=== PATIENT | male | born 1945 | race Caucasian/White ===

== ENCOUNTER → 2017-06-14 | Outpatient (CLI) | payer MEDICARE, OTHER ==
[~2017-06-14] MED LIST: DOXAZOSIN MESYLA2 MG PO; IOPAMIDOL 370 MG/ML 200 ML INFUS..BTL INJ ONE; SODIUM CHLORIDE 0.9% 250ML 250 ML ONE; SODIUM CHLORIDE 0.9% 500ML 500 ML ONE; SODIUM CHLORIDE 0.9% 50ML 50 ML ONE
[2017-06-14 08:10] LABS: CREATININE, SERUM 1.22 mg/dL (0.72-1.25)
--- NOTE | 2017-06-14 09:32 | Diagnostic Imaging Report ---
PROCEDURE: CT ABDOMEN WITH AND WITHOUT CONTRAST TECHNIQUE: The abdomen was scanned utilizing a multidetector helical scanner from the diaphragm to the iliac crest before and after the IV administration of 100 cc Isovue 370 and the oral administration of water. Renal mass protocol was performed. Coronal and sagittal multiplanar reformations were obtained. COMPARISON: Renal ultrasound 02/12/2016. INDICATIONS: RENAL CYST FINDINGS: LOWER THORAX: Normal. HEPATOBILIARY: Multiple round low attenuation lesions throughout the right and left hepatic lobes, which have average internal attenuation less than 20 Hounsfield units on precontrast and delayed phase imaging compatible with simple cysts. No intrahepatic biliary ductal dilatation. The gallbladder is unremarkable. SPLEEN: No splenomegaly. PANCREAS: No focal masses or ductal dilatation. ADRENALS: No adrenal nodules. KIDNEYS: There are multiple bilateral renal cysts, all of which have average internal attenuation less than 20 Hounsfield units on the pre-and post contrast images. Examples include: 1.9 cm lesion in the interpolar right kidney (series 4 image 38) 2.2 cm lesion projecting exophytically from the posterior interpolar right kidney (series 4 image 37) Adjacent 1.3 cm lesions in the upper pole of the left kidney (series 4, image 40) Additionally, there is a 2.2 cm hyperdense lesion within the interpolar right kidney posteriorly, with attenuation values as follows: Pre-contrast: 63 Hounsfield units Arterial phase: 66 Hounsfield units Venous phase: 67 Hounsfield units Delayed phase: 65 Hounsfield units Incidental note of a partially duplicated right collecting system, with fusion of the upper and lower pole ureters at the level of the low abdomen. No filling defects within the upper collecting systems or proximal ureters; nonspecific bilateral perinephric fat stranding. No calculi. No hydronephrosis. PERITONEUM / RETROPERITONEUM: No pneumoperitoneum or upper abdominal ascites. LYMPH NODES: No retroperitoneal or mesenteric lymphadenopathy. VESSELS: The abdominal aorta, major branch vessels, and iliac arterial systems are well-visualized and patent. The common hepatic artery is replaced to the superior mesenteric artery. Single renal artery perfuses each kidney. Retroaortic left renal vein. GI TRACT: Visualized portions show no distention or wall thickening. There are a few large bowel diverticula without wall thickening or inflammatory change. BONES AND SOFT TISSUES: No osseous destructive lesions. No focal soft tissue abnormalities. Degenerative disc changes of the lower lumbar spine with bilateral pars defects at L3 and grade 1 anterolisthesis of L3 over L4 partially visualized. IMPRESSION: Multiple bilateral simple renal cysts. 2.2 cm hyperdense lesion in the right lower pole shows no significant enhancement on postcontrast imaging and is most consistent with a hemorrhagic or proteinaceous cyst. 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 Multiple hepatic cysts. Large bowel diverticulosis without evidence of diverticulitis. Dictated by: Jose M Mendoza M.D. on 06/14/2017 at 9:34 Electronically approved by: Jose M Mendoza M.D. on 06/14/2017 at 9:34
== END ==
LOC: CT 07:20
PROVIDERS: ATTEND Urology
DX: N28.1 Cyst of kidney, acquired (principal)
CPT/HCPCS: 36415; 74170; 82565; 84520; J7040; J7050; Q9967

== ENCOUNTER → 2022-04-17 | Outpatient (CLI) | payer MEDICARE, OTHER ==
[~2022-04-17] MED LIST changes: -IOPAMIDOL 370 MG/ML 200 ML INFUS..BTL INJ ONE; -SODIUM CHLORIDE 0.9% 250ML 250 ML ONE; -SODIUM CHLORIDE 0.9% 500ML 500 ML ONE; -SODIUM CHLORIDE 0.9% 50ML 50 ML ONE
== END ==
LOC: US 14:48
PROVIDERS: ATTEND Urology
DX: N28.1 Cyst of kidney, acquired (principal)
CPT/HCPCS: 76770

== ENCOUNTER → 2024-05-29 | Outpatient (REF) | payer MEDICARE, OTHER ==
[~2024-05-29] MED LIST changes: +IOPAMIDOL 370 MG/ML 100 ML INFUS..BTL INJ ONE
[2024-05-29 16:53] LABS: CREATININE, SERUM 1.64 mg/dL (0.72-1.25)
== END ==
LOC: CT 15:46
PROVIDERS: ATTEND Urology
DX: N28.1 Cyst of kidney, acquired (principal); N18.9 Chronic kidney disease, unspecified
CPT/HCPCS: 36415; 74178; 82565; 84520; Q9967